=== PATIENT | female | born 1955 | race Caucasian/White ===

== ENCOUNTER 2024-04-11 09:00 | Day surgery (SDC) | payer MEDICARE, BC, SELFPAY ==
[2024-04-11] VITALS (10 sets, daily range): BP systolic 141–192; BP diastolic 63–83; PULSE 43–51; RESP 13–21; TEMP 36.7–37.1; O2SAT 95–100; BMI 26.4
[2024-04-11] MEDS: DiphenhydrAMINE INJ 50 MG/ML VIAL 25 MG IV (10:57)
[2024-04-11] MEDS: MIDAZOLAM INJ 1 MG/ML VIAL 2 ML (ASD USE ONLY) 2 MG IV (11:01)
[2024-04-11] MEDS: fentaNYL CIT INJ 50 mCg/ML AMP 2ML (ASD USE ONLY) IV (11:03)
--- NOTE | 2024-04-11 12:51 | SUR.PHASEII ---
1125: Pt received in recovery. Pt sleepy. Is arousable with brief eye opening then drifts back to sleep. Resp even, unlabored. VS stable. No c/o pain. 1145: Pt more awake, alert. Is sitting up tolerating po fluids with no difficulty swallowing and no n/v. 1215: Pt fully awake, oriented x3. Pt assisted to restroom. Ambulation steady. Pt and stated understanding of discharge instructions. Pt discharged from [facility] in stable condition.
== END 2024-04-11 12:15 | disposition home or self-care (01) ==
PROVIDERS: PCP Family Medicine; Referring Provider Specialist; Visit Provider Specialist
PROC: 0DBE8ZX Excision of Large Intestine, Via Natural or Artificial Opening Endoscopic, Diagnostic (ICD-10-PCS; CPT 45380; principal; 2024-04-11 10:00)
PROC: (CPT 43239; 2024-04-11 10:00)
DX: Z12.11 Encounter for screening for malignant neoplasm of colon (principal); D12.6 Benign neoplasm of colon, unspecified; K64.9 Unspecified hemorrhoids; K57.30 Diverticulosis of large intestine without perforation or abscess without bleeding; Z86.0101 Personal history of adenomatous and serrated colon polyps; Z98.84 Bariatric surgery status; K20.90 Esophagitis, unspecified without bleeding; K29.70 Gastritis, unspecified, without bleeding; K20.80 Other esophagitis without bleeding
CPT/HCPCS: 43239; 45380; A4649; J1200; J2250; J3010

== ENCOUNTER → 2024-08-22 | Outpatient (CLI) | payer MEDICARE, BC, SELFPAY ==
--- NOTE | 2024-08-22 12:53 | XR_ITS ---
Examination: PA lateral chest 2 views Technique: Upright PA lateral chest 2 views Exam date and time: 2024 at 1220 hrs. Indications: Coughing beginning 3 weeks ago Findings: Normal heart size Lungs are clear. Moderate osteopenia Impression: No active disease
[2024-08-22 14:38] LABS: Basophils % (Auto) 1 % (0-2.5); Eosinophils % (Auto) 0 % (0-10); Hemoglobin 15.1 g/dL (12.0-16.0); Immature Granulocytes % (Auto) 1 % (0-0); Immature Granulocytes Auto 0.03 Thou/mm3 (0.00-0.00); Lymphocytes # (Auto) 1.4 Thou/mm3 (1.0-4.8); Lymphocytes % (Auto) 25 % (10-50); Mean Corpuscular HGB Conc 31.5 g/dl (31.0-37.0); Mean Corpuscular Hemoglobin 29.4 pg (25.0-35.0); Mean Corpuscular Volume 93 fL (80-100); Monocytes # (Auto) 0.3 Thou/mm3 (0.0-0.8); Monocytes % (Auto) 6 % (0-12); Neutrophils # (Auto) 3.7 Thou/mm3 (1.8-7.7); Neutrophils % (Auto) 68 % (37-80); Nucleated Red Blood Cell % 0 /100 WBC (0); Platelet Count 187 Thou/mm3 (140-440); RDW Standard Deviation 51.7 fL (36.4-46.3); Red Blood Count 5.14 Miln/mm3 (4.00-5.20); White Blood Count 5.5 Thou/mm3 (3.6-11.0)
[2024-08-22 14:55] LABS: Thyroid Stimulating Hormone 1.33 uIU/mL (0.55-4.78)
[2024-08-22 15:00] LABS: T4 (Thyroxine) 14.4 mcg/dL (4.5-10.9)
== END | disposition home or self-care (01) ==
LOC: CDIM 13:26 → COPL 13:35
PROVIDERS: PCP Family Medicine; Referring Provider Family Medicine; Visit Provider Family Medicine
DX: R05.9 Cough, unspecified (principal); D50.9 Iron deficiency anemia, unspecified; R79.9 Abnormal finding of blood chemistry, unspecified; R53.82 Chronic fatigue, unspecified
CPT/HCPCS: 36415; 71046; 84436; 84443; 85025

== ENCOUNTER → 2024-09-28 | Outpatient (CLI) | payer MEDICARE, BC, SELFPAY ==
[2024-09-28 11:48] LABS: Free T4 (Free Thyroxine) 1.55 ng/dL (0.89-1.76); Thyroid Stimulating Hormone 1.58 uIU/mL (0.55-4.78)
[2024-10-08 07:06] LABS: ANA Pattern NUCLEAR, SPECKLED; ANA Screen, IFA POSITIVE (NEGATIVE)
== END | disposition home or self-care (01) ==
PROVIDERS: PCP Family Medicine; Referring Provider Dermatology; Visit Provider Dermatology
DX: L65.9 Nonscarring hair loss, unspecified (principal)
CPT/HCPCS: 36415; 84439; 84443; 86038

== ENCOUNTER → 2024-11-01 | Outpatient (CLI) | payer MEDICARE, BC, SELFPAY ==
--- NOTE | 2024-11-01 09:58 | XR_ITS ---
Examination: CT chest, without intravenous contrast. Sagittal and coronal 2-D reconstructions. Exam date and time: November 01, 2024 1023 hours INDICATIONS: Abnormal weight loss beginning 2 weeks ago CTDI:vol (mGy) 8.12 DLP: (mGycm) 309 Technique: Multiple 3.0 mm axial sections of the chest to been obtained. Bone and lung density settings are obtained. Sagittal and coronal 2-D reconstructions have been obtained. Low dose protocols were performed. One or more of the following dose reduction techniques were used; automated exposure control, adjustment of the mA and/or KV according to patient size, use of iterative reconstruction technique. Findings: No thoracic aortic aneurysm dilatation No paratracheal tracheobronchial or bronchopulmonary adenopathy Heavy calcification left anterior descending coronary artery 2 mm pulmonary nodule left lower lobe image 218 2 mm pulmonary nodule right lower lobe image 237 2 mm pulmonary nodule left lower lobe image 238 No pneumonia or pulmonary edema No visualized liver or splenic lesion Distended gallbladder No pancreatic mass IMPRESSION: Noncalcified pulmonary nodules as above, with this study as baseline recommend 6 month follow-up CT chest without contrast
== END | disposition home or self-care (01) ==
LOC: SCAT 09:43
PROVIDERS: PCP Family Medicine; Referring Provider Family Medicine; Visit Provider Family Medicine
DX: R91.8 Other nonspecific abnormal finding of lung field (principal)
CPT/HCPCS: 71250

== ENCOUNTER → 2024-11-02 | Outpatient (CLI) | payer MEDICARE, BC, SELFPAY ==
--- NOTE | 2024-11-02 09:46 | XR_ITS ---
Examination: CT abdomen and pelvis without contrast. Coronal 3-D reconstructions. Sagittal 2-D reconstructions. Date and time of exam:November 02, 2024 at 1044 hours Comparison November 27, 2022 INDICATIONS: Recent diagnosis of lupus, 40 pound weight loss in the last 6 months CTDI: vol (mGy): 7.3 DLP: (mGycm): 130 Technique: Axial images of the abdomen have been obtained, 3 mm slice thickness Intravenous contrast material has not been administered. Low dose protocols were performed. One or more of the following dose reduction techniques were used; automated exposure control, adjustment of the mA and/or KV according to patient size, use of iterative reconstruction technique. Findings: No focal liver lesions Mild intrahepatic biliary tract dilatation Distended gallbladder Enlarged common bile duct 10 mm No definite common bile duct stones No pancreatic mass or dilated pancreatic duct Normal adrenal glands No renal or ureteral calculi, no hydronephrosis Heavy abdominal aortic calcification no aneurysmal dilatation Normal appendix No bowel obstruction Retroverted uterus No adnexal mass Urinary bladder intact Prominent osteopenia Advanced degenerative disc disease L4-L5 Moderate narrowing hip joints IMPRESSION: Distended gallbladder with enlarged common bile duct 10 mm, consider hepatobiliary sonography follow-up Normal appendix No bowel obstruction diverticulitis or free air Advanced degenerative disc disease L4-L5
== END | disposition home or self-care (01) ==
LOC: SCAT 09:33
PROVIDERS: PCP Family Medicine; Referring Provider Family Medicine; Visit Provider Family Medicine
DX: K82.8 Other specified diseases of gallbladder (principal); K83.8 Other specified diseases of biliary tract; M51.360 Other intervertebral disc degeneration, lumbar region with discogenic back pain only
CPT/HCPCS: 74176; Q9963

== ENCOUNTER → 2025-02-05 | Outpatient (CLI) | payer MEDICARE, BC, SELFPAY ==
[2025-02-08 14:18] LABS: ANA Screen, IFA POSITIVE (NEGATIVE); ANA Titer 1:80 titer
== END | disposition home or self-care (01) ==
LOC: COPL 08:54
PROVIDERS: PCP Family Medicine; Referring Provider Dermatology; Visit Provider Dermatology
DX: L65.9 Nonscarring hair loss, unspecified (principal)
CPT/HCPCS: 36415; 86038

== ENCOUNTER → 2025-02-14 | Outpatient (CLI) | payer MEDICARE, BC, SELFPAY ==
--- NOTE | 2025-02-14 11:00 | XR_ITS ---
Examination: Screening digital mammography, bilateral Computer aided detection 3-D breast Tomosynthesis, bilateral Date and time of exam: February 14, 2025 1028 hours, compared to mammograms dating to March 27, 2012 Indication: Screening Technique: Nonmagnified MLO, CC views of the breasts to been obtained, reconstructed from 3-D Tomosynthesis images. R2 computer aided detection program utilized for evaluation of suspicious masses and/or abnormal calcifications. 3-D Tomosynthesis images obtained. Findings: Scattered areas of fibroglandular density. Benign calcifications. Implants appear intact No interval suspicious masses Impression: BI-RADS category II: Benign Findings. Recommend 1 year follow-up mammogram.
== END | disposition home or self-care (01) ==
LOC: CDIM 10:17
PROVIDERS: Referring Provider Family Medicine; Visit Provider Family Medicine
DX: Z12.31 Encounter for screening mammogram for malignant neoplasm of breast (principal); R92.323 Mammographic fibroglandular density, bilateral breasts; R92.1 Mammographic calcification found on diagnostic imaging of breast
CPT/HCPCS: 77063; 77067

== ENCOUNTER → 2025-03-07 | Outpatient (CLI) | payer MEDICARE, BC, SELFPAY ==
[2025-03-07 09:41] LABS: Basophils # (Auto) 0.1 Thou/mm3 (0.0-0.2); Basophils % (Auto) 1 % (0-2.5); Eosinophils # (Auto) 0.0 Thou/mm3 (0.0-0.5); Eosinophils % (Auto) 0 % (0-10); Hematocrit 47.2 % (36.0-46.0); Hemoglobin 15.1 g/dL (12.0-16.0); Immature Granulocytes Auto 0.02 Thou/mm3 (0.00-0.00); Lymphocytes # (Auto) 1.8 Thou/mm3 (1.0-4.8); Lymphocytes % (Auto) 23 % (10-50); Mean Corpuscular HGB Conc 32.0 g/dl (31.0-37.0); Mean Corpuscular Hemoglobin 30.1 pg (25.0-35.0); Mean Corpuscular Volume 94 fL (80-100); Monocytes # (Auto) 0.5 Thou/mm3 (0.0-0.8); Monocytes % (Auto) 7 % (0-12); Neutrophils # (Auto) 5.4 Thou/mm3 (1.8-7.7); Neutrophils % (Auto) 69 % (37-80); Nucleated Red Blood Cell # 0.00 Thou/mm3 (0.00-0.00); Nucleated Red Blood Cell % 0 /100 WBC (0); Platelet Count 161 Thou/mm3 (140-440); RDW Standard Deviation 46.9 fL (36.4-46.3); Red Blood Count 5.01 Miln/mm3 (4.00-5.20); White Blood Count 7.8 Thou/mm3 (3.6-11.0)
[2025-03-07 10:07] LABS: Alanine Aminotransferase 63 U/L (10-49); Albumin, Serum 4.1 gm/dL (3.4-4.8); Albumin/Globulin Ratio 2.0 (1.2-2.2); Alkaline Phosphatase 155 U/L (46-116); Anion Gap 11 (7-16); Aspartate Amino Transferase 159 U/L (0-34); BUN/Creatinine Ratio 14 Ratio (12-20); Bilirubin,Total 0.7 mg/dL (0.3-1.2); Blood Urea Nitrogen 10 mg/dL (9-23); Calcium 9.2 mg/dL (8.3-10.6); Calcium (Corrected) 9.2 mg/dL (8.5-10.1); Carbon Dioxide 26.7 mMol/L (20.0-31.0); Cardiac Risk Estimate 3.1 RATIO (3.7-5.6); Chloride 109 mMol/L (98-107); Cholesterol 117 mg/dL (132-200); Creatinine (Component) 0.7 mg/dL (0.6-1.3); Free T4 (Free Thyroxine) 1.58 ng/dL (0.89-1.76); Globulin 2.1 gm/dL (2.3-3.5); Glucose 90 mg/dL (74-106); HDL Cholesterol 38 mg/dL (40-60); LDL Cholesterol,Calculated 54 mg/dL (0-130); Osmolality,Calculated 291 (275-295); Potassium 4.8 mMol/L (3.4-5.1); Sodium 147 mMol/L (136-145); Thyroid Stimulating Hormone 2.61 uIU/mL (0.55-4.78); Total Protein 6.2 gm/dL (5.7-8.2); Triglycerides 124 mg/dL (30-150); eGFR > 60 See Note
== END | disposition home or self-care (01) ==
LOC: COPL 08:23
PROVIDERS: PCP Family Medicine; Referring Provider Internal Medicine Cardiovascular Disease; Visit Provider Internal Medicine Cardiovascular Disease
DX: I25.10 Atherosclerotic heart disease of native coronary artery without angina pectoris (principal)
CPT/HCPCS: 36415; 80053; 80061; 84439; 84443; 85025

== ENCOUNTER → 2025-04-17 | Outpatient (CLI) | payer MEDICARE, BC, SELFPAY ==
--- NOTE | 2025-04-17 14:26 | XR_ITS ---
Examination: Abdomen sonogram, complete Date and time of exam: 04/17/2025, 3:01 p.m. Indication: Elevated liver enzymes. History of weight loss and hair loss for the past year. COMPARISON: CT abdomen pelvis 11/02/2024 Technique: Multiple real-time grayscale transabdominal sonographic images of the abdomen have been obtained. Findings: FINDINGS: Liver: The liver is measured at 17.7 and demonstrates diffusely increased echotexture but smooth margins. Gallbladder: The gallbladder appears contracted at time imaging with mild diffuse mural prominence. Polypoid gallbladder wall foci noted, the largest measuring 0.3 cm. No mobile gallstones. No apparent sludge. No pericholecystic fluid. No reported tenderness over the gallbladder. Bile ducts: The common bile duct measures 0.4 cm. No evidence for intrahepatic biliary ductal dilatation. Main portal vein: Patent with hepatopedal flow. Pancreas: Unremarkable where visualized. Spleen: The spleen is measured at 10.9. Kidneys: The right kidney is measured at 11.5 x 4.1 x 4.4 cm. The left kidney is measured at 11.4 x 4.2 x 4.6 cm. Renal cortex shows shows normal echogenicity bilaterally. 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 No hydronephrosis, nephrolithiasis or renal mass. Urinary bladder: Unremarkable. Bilateral ureteral jets are visualized. Aorta: Normal caliber where visualized. Inferior vena cava: Patent where visualized. Ascites: None IMPRESSION: Nonspecific diffuse increased hepatic echotexture could represent hemochromatosis in this patient, with differential diagnosis including hepatic steatosis and chronic hepatitis. Please correlate with serum transferrin saturation (TSAT) and serum ferritin. Contracted gallbladder with polyps, the largest measuring 3 mm. No evidence for cholelithiasis, sludge, acute cholecystitis or bile duct obstruction. No splenomegaly, ascites or hydronephrosis.
== END | disposition home or self-care (01) ==
PROVIDERS: PCP Family Medicine; Referring Provider Family Medicine; Visit Provider Family Medicine
DX: K82.4 Cholesterolosis of gallbladder (principal)
CPT/HCPCS: 76700

== ENCOUNTER → 2025-04-17 | Outpatient (CLI) | payer MEDICARE, BC, SELFPAY ==
[2025-04-17 12:21] LABS: Alanine Aminotransferase 64 U/L (10-49); Albumin, Serum 4.6 gm/dL (3.4-4.8); Albumin/Globulin Ratio 2.3 (1.2-2.2); Alkaline Phosphatase 119 U/L (46-116); Anion Gap 6 (7-16); Aspartate Amino Transferase 113 U/L (0-34); BUN/Creatinine Ratio 9 Ratio (12-20); Bilirubin,Total 0.5 mg/dL (0.3-1.2); Blood Urea Nitrogen 7 mg/dL (9-23); Calcium 9.3 mg/dL (8.3-10.6); Calcium (Corrected) 9.3 mg/dL (8.5-10.1); Carbon Dioxide 29.7 mMol/L (20.0-31.0); Chloride 110 mMol/L (98-107); Creatinine (Component) 0.8 mg/dL (0.6-1.3); Globulin 2.0 gm/dL (2.3-3.5); Glucose 82 mg/dL (74-106); Osmolality,Calculated 287 (275-295); Potassium 4.1 mMol/L (3.4-5.1); Sodium 146 mMol/L (136-145); Total Protein 6.6 gm/dL (5.7-8.2); eGFR > 60 See Note
== END | disposition home or self-care (01) ==
PROVIDERS: PCP Family Medicine; Referring Provider Family Medicine; Visit Provider Family Medicine
DX: R74.01 Elevation of levels of liver transaminase levels (principal)
CPT/HCPCS: 36415; 80053

== ENCOUNTER → 2025-04-18 | Outpatient (CLI) | payer MEDICARE, BC, SELFPAY ==
[2025-04-18 13:16] LABS: Alanine Aminotransferase 50 U/L (10-49); Albumin, Serum 4.0 gm/dL (3.4-4.8); Albumin/Globulin Ratio 2.2 (1.2-2.2); Alkaline Phosphatase 99 U/L (46-116); Anion Gap 7 (7-16); Aspartate Amino Transferase 85 U/L (0-34); BUN/Creatinine Ratio 11 Ratio (12-20); Bilirubin,Total 0.4 mg/dL (0.3-1.2); Blood Urea Nitrogen 9 mg/dL (9-23); Calcium 8.8 mg/dL (8.3-10.6); Calcium (Corrected) 8.8 mg/dL (8.5-10.1); Carbon Dioxide 25.1 mMol/L (20.0-31.0); Chloride 113 mMol/L (98-107); Creatinine (Component) 0.8 mg/dL (0.6-1.3); Globulin 1.8 gm/dL (2.3-3.5); Glucose 141 mg/dL (74-106); Osmolality,Calculated 289 (275-295); Potassium 3.5 mMol/L (3.4-5.1); Sodium 145 mMol/L (136-145); Total Protein 5.8 gm/dL (5.7-8.2); eGFR > 60 See Note
== END | disposition home or self-care (01) ==
LOC: COPL 11:59
PROVIDERS: PCP Family Medicine; Referring Provider Family Medicine; Visit Provider Family Medicine
DX: R74.01 Elevation of levels of liver transaminase levels (principal)
CPT/HCPCS: 36415; 80053

== ENCOUNTER → 2025-04-19 | Outpatient (CLI) | payer MEDICARE, BC, SELFPAY ==
[2025-04-19 10:16] LABS: Misc Send Out* See Sep Rpt
[2025-04-19 11:49] LABS: Hepatitis A Antibody IgM Non Reactive (Non React); Hepatitis B Core Antibody IgM Non Reactive (Non React); Hepatitis B Surface Antigen Non Reactive (Non React); Hepatitis C Antibody Non Reactive (Non React)
[2025-04-19 12:00] LABS: Ferritin 80 ng/mL (7.3-270.7)
== END | disposition home or self-care (01) ==
LOC: COPL 09:26
PROVIDERS: PCP Family Medicine; Referring Provider Family Medicine; Visit Provider Family Medicine
DX: R74.01 Elevation of levels of liver transaminase levels (principal)
CPT/HCPCS: 36415; 80074; 82728; 84466